=== PATIENT | male | born 1985 | race Caucasian/White ===

== ENCOUNTER 2016-09-15 02:01 | Emergency (ER) | payer OTHER ==
[~2016-09-15] VITALS: Ht 182.9 cm; Wt 75.8 kg
[~2016-09-15 02:01] MED LIST: AMOX TR-K CLV1 EAC3 PO; AUGMENTIN500 MG PO; HYDROCODON-ACE1 EAC7 PO; IBUPROFEN600 MG PO; KEFLEX500 MG PO; MEDROL DOSEPAK4 MG PO; NO HOME MEDS; PERCOCET 5/31 TABLET PO; ULTRAM50 MG PO; ZOFRAN4 MG PO
[2016-09-15 06:33] VITALS: BP 120/61
== END 2016-09-15 06:35 | disposition home or self-care (01) ==
LOC: EME 02:01
DX: F10.229 Alcohol dependence with intoxication, unspecified (principal); F17.200 Nicotine dependence, unspecified, uncomplicated; R20.2 Paresthesia of skin
CPT/HCPCS: 73130; 99281; 99283

== ENCOUNTER 2017-05-21 20:10 | Emergency (ER) | payer OTHER ==
[~2017-05-21] VITALS: Ht 182.9 cm; Wt 83.5 kg
[2017-05-21 23:40] VITALS: BP 137/89
[2017-05-21] MEDS ORDERED: AUGMENTIN875 MG PO (23:57)
== END 2017-05-22 | disposition home or self-care (01) ==
LOC: EME → EDBD 20:10 → EME 05-22
DX: S01.81XA Laceration without foreign body of other part of head, initial encounter (principal); S00.83XA Contusion of other part of head, initial encounter; S20.219A Contusion of unspecified front wall of thorax, initial encounter; S02.19XA Other fracture of base of skull, initial encounter for closed fracture; W10.9XXA Fall (on) (from) unspecified stairs and steps, initial encounter; Y08.89XA Assault by other specified means, initial encounter; Z23 Encounter for immunization; F17.200 Nicotine dependence, unspecified, uncomplicated
CPT/HCPCS: 70450; 70486; 71020; 72125; 99281; 99284

== ENCOUNTER 2017-05-26 10:50 | Emergency (ER) | payer OTHER ==
[~2017-05-26] VITALS: Ht 182.9 cm; Wt 82.9 kg
[~2017-05-26 10:50] MED LIST changes: +AUGMENTIN875 MG PO
[2017-05-26 12:15] VITALS: BP 145/92
== END 2017-05-26 12:15 | disposition home or self-care (01) ==
LOC: EME 10:50
DX: S01.81XD Laceration without foreign body of other part of head, subsequent encounter (principal); Y09 Assault by unspecified means; R20.0 Anesthesia of skin; F17.200 Nicotine dependence, unspecified, uncomplicated
CPT/HCPCS: 99281; 99283

== ENCOUNTER 2017-08-31 20:28 | Emergency (ER) | payer OTHER ==
[~2017-08-31] VITALS: Ht 182.9 cm; Wt 86.6 kg
[2017-08-31] MEDS ORDERED: NAPROSYN500 MG PO (21:09)
[2017-08-31] MEDS ORDERED: ORAL ANESTHETIC12 GM MM (21:09)
[2017-08-31 21:24] VITALS: BP 148/101
== END 2017-08-31 21:24 | disposition home or self-care (01) ==
LOC: EME 20:28
DX: K02.9 Dental caries, unspecified (principal); F17.200 Nicotine dependence, unspecified, uncomplicated
CPT/HCPCS: 99281; 99283